=== PATIENT | male | born 1995 | race Native Hawaiian/Other Pacific Islander ===

== ENCOUNTER 2019-08-25 05:06 | Emergency (ER) | payer OTHER ==
[~2019-08-25] VITALS: Ht 175.3 cm; Wt 72.6 kg
[2019-08-25 05:15] VITALS: BP 114/54; TEMP 97.7
[2019-08-25 05:53] LABS: PLATELET COUNT 266 K/uL (142-355)
[2019-08-25 06:04] LABS: POTASSIUM 3.8 mmol/L (3.6-5.2)
[2019-08-25 06:09] LABS: PARTIAL THROMBOPLASTIN TIME 23.6 SECONDS (24.5-33.6)
== END 2019-08-25 08:24 | disposition home or self-care (01) ==
LOC: ED 05:06
PROVIDERS: Hospitalist
DX: S06.0X0A Concussion without loss of consciousness, initial encounter (principal); M54.2 Cervicalgia; S33.5XXA Sprain of ligaments of lumbar spine, initial encounter; S83.92XA Sprain of unspecified site of left knee, initial encounter; V48.0XXA Car driver injured in noncollision transport accident in nontraffic accident, initial encounter
CPT/HCPCS: 36415; 80053; 80320; 81000; 85027; 85610; 85730; 96360; 96375; 99284; J1885; J2270; J2405